=== PATIENT | male | born 1995 | race Hispanic/Latino ===

== ENCOUNTER 2017-02-28 06:06 | Emergency (ER) | payer OTHER ==
[2017-02-28 06:22] VITALS: RESP 18
[2017-02-28] MEDS ORDERED: Sodium Chloride 0.9% 1,000 ML IV STA (06:23)
--- NOTE | 2017-02-28 06:46 | ED PDOC ---
HPI: Abdomen Time Seen by Provider: 02/28/17 06:16 Chief Complaint (Nursing): Abdominal Pain Chief Complaint (Provider): Abdominal Pain History Per: Patient History/Exam Limitations: no limitations Onset/Duration Of Symptoms: Hrs (Ten) Outside of [place] travel?: No Current Symptoms Are (Timing): Still Present Context: Food (Chicken) Location Of Pain/Discomfort: Epigastric Quality Of Discomfort: Cramping Associated Symptoms: Fever, Chills, Nausea, Vomiting, Diarrhea Additional Complaint(s): 21 y/o male patient presenting to the ED with vomiting and diarrhea that began 10 hours ago. Patient reports 4 episodes of vomiting non-bloody, non-bilious and 4 episodes of diarrhea non-bloody. Patient states the acute onset of symptoms began 3-4 hours after eating a meal; he states he has cramping abdominal pain, fever, chills and body aches. Patient denies taking any over the counter medications. 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 - Family History Family History: States: No Known Family Hx - Social History Current smoker - smoking cessation education provided: No Alcohol: None Drugs: Denies - Home Medications Home Medications: Ambulatory Orders Medication Instructions Recorded Famotidine [Pepcid] 20 mg PO BID #28 tab 02/28/17 Ondansetron [Zofran] 4 mg PO Q8H #9 tab 02/28/17 - Allergies Allergies/Adverse Reactions: Allergies Allergy/AdvReac Type Severity Reaction Status Date / Time codeine Allergy ITCHING Verified 02/28/17 06:19 morphine Allergy ITCHING Verified 02/28/17 06:19 Review of Systems ROS Statement: Except As Marked, All Systems Reviewed And Found Negative Constitutional: Positive for: Fever, Chills, Other ((+)Body aches) Gastrointestinal: Positive for: Vomiting, Abdominal Pain ((+)Cramping), Diarrhea Physical Exam - Reviewed Nursing Documentation Reviewed: Yes Vital Signs Reviewed: Yes - Physical Exam Appears: Positive for: Non-toxic, No Acute Distress Head Exam: Positive for: ATRAUMATIC, NORMAL INSPECTION, NORMOCEPHALIC Skin: Positive for: Normal Color, Warm, Dry Neck: Positive for: Normal, Painless ROM, Supple Cardiovascular/Chest: Positive for: Regular Rate, Rhythm. Negative for: Murmur Respiratory: Positive for: Normal Breath Sounds. Negative for: Respiratory Distress Gastrointestinal/Abdominal: Positive for: Tenderness ((+)Mild Epigastric tenderness) Extremity: Positive for: Normal ROM Neurologic/Psych: Positive for: Alert, Oriented. Negative for: Motor/Sensory Deficits - Laboratory Results Result Diagrams: 02/28/17 06:45 02/28/17 06:45 - ECG O2 Sat by Pulse Oximetry: 97 (RA) Pulse Ox Interpretation: Normal Medical Decision Making Medical Decision Making: Time: 622 Initial impression: Vomiting, Diarrhea and abdominal pain. Initial plan: --CMP --LIPASE --ED URINE DIPSTICK --CBC --DICYCLOMINE 20MG PO --FAMOTIDINE 20MG IV --SODIUM CHLORIDE 1,000ML IV 1,000MLS/HR --ONDANSETRON 4MG IV --HEPLOCK INSERTION IV --URINALYSIS 0700 Giving Sign Out: Patient signed out to Dr. Álvarez at this time. Pending lab workups. Scribe Attestation: Documented by Taisha Payton, acting as a scribe for Shailesh Yuan MD. Scribe Attestation: All medical record entries made by the Scribe were at my direction and personally dictated by me. I have reviewed the chart and agree that the record accurately reflects my personal performance of the history, physical exam, medical decision making, and the department course for this patient. I have also personally directed, reviewed, and agree with the discharge instructions and disposition. Disposition - Clinical Impression Clinical Impression: Abdominal pain - Disposition Referrals: Adiel Bain [Outside] Disposition: Transfer of Care Disposition Time: 07:00 Condition: FAIR Prescriptions: Famotidine [Pepcid] 20 mg PO BID #28 tab Ondansetron [Zofran] 4 mg PO Q8H #9 tab Patient Signed Over To: Alexandria Álvarez
[2017-02-28 06:53] LABS: BASO % 0.4 % (0.0-2.0); EOS # 0.1 K/uL (0.0-0.7); EOS % 1.2 % (0.0-4.0); HEMOGLOBIN 15.7 g/dL (12.0-18.0); LYMPH # 0.4 K/uL (1.0-4.3); LYMPH % 5.3 % (20.0-40.0); MEAN CELL VOLUME 86.7 fl (80.0-94.0); MEAN CORPUSCULAR HGB CONC 33.4 g/dL (33.0-37.0); MEAN PLATELET VOLUME 9.7 fl (7.2-11.7); MONO # 0.5 K/uL (0.0-0.8); MONO % 6.9 % (0.0-10.0); NEUT # 5.9 K/uL (1.8-7.0); NEUT % 86.2 % (50.0-75.0); PLATELET COUNT 135 K/uL (130-400); RBC 5.42 Mil/uL (4.40-5.90); WHITE BLOOD COUNT 6.8 K/uL (4.8-10.8)
[2017-02-28 07:02] LABS: ALB/GLOB RATIO 1.5 (1.0-2.1); ALBUMIN 4.8 g/dL (3.5-5.0); ALT/SGPT 49 U/L (21-72); AST/SGOT 25 U/L (17-59); BLOOD UREA NITROGEN 26 mg/dl (9-20); CALCIUM 9.6 mg/dL (8.4-10.2); GFR AFRICAN-AMERICAN > 60; GFR NON-AFRICAN AMERICAN > 60; LIPASE 48 U/L (23-300)
--- NOTE | 2017-02-28 07:13 | ED PDOC ---
- Laboratory Results Result Diagrams: 02/28/17 06:45 02/28/17 06:45 - ECG O2 Sat by Pulse Oximetry: 97 (RA) Pulse Ox Interpretation: Normal Medical Decision Making Medical Decision Making: Time: 07:00 --Patient was signed out by Dr. Shailesh Yuan to nh, pending labs, fluids, and reevaluation 8.05a - patient is feeling better after meds and IVF. labs reviewed. will d/c on meds. followup with PMD/ Disposition Doctor Will See Patient In The: Office Counseled Patient/Family Regarding: Diagnosis, Need For Followup, Rx Given - Clinical Impression Clinical Impression: Indigestion - POA Present On Arrival: None - Disposition Referrals: Adiel Bain [Outside] Disposition: Routine/Home Disposition Time: 08:15 Condition: IMPROVED Prescriptions: Famotidine [Pepcid] 20 mg PO BID #28 tab Ondansetron [Zofran] 4 mg PO Q8H #9 tab Instructions: Soft Diet (ED), Full Liquid Diet (GEN) Forms: Adiel Perdue (Slovak), [facility] ED School/Work Excuse
[2017-02-28 08:31] LABS: LYMPHOCYTE 6 % (20-50); MONOCYTE 10 % (0-10); NEUTROPHIL 84 % (42-75); TOTAL CELLS COUNTED 100
[2017-02-28 08:33] LABS: PLATELET ESTIMATE SLIGHTLY DECREASED (NORMAL)
[2017-02-28 08:38] VITALS: BP 123/76; PULSE 89; TEMP 98.1
[2017-02-28 08:51] LABS: URINE BILIRUBIN NEGATIVE (NEGATIVE); URINE BLOOD NEGATIVE (NEGATIVE); URINE CLARITY CLEAR (Clear); URINE COLOR YELLOW (YELLOW); URINE GLUCOSE (UA) NEG (Normal); URINE LEUKOCYTE ESTERASE NEG Leu/uL (Negative); URINE NITRATE NEGATIVE (NEGATIVE); URINE PROTEIN NEGATIVE (NEGATIVE); URINE UROBILINOGEN 0.2-1.0 mg/dL (0.2-1.0)
[2017-03-02 19:20] VITALS: O2SAT 97
== END 2017-02-28 08:39 | disposition home or self-care (01) ==
LOC: H.ER 06:06
DX: K30 Functional dyspepsia (principal); R11.10 Vomiting, unspecified